=== PATIENT | male | born 1965 | race Asian ===

== ENCOUNTER 2016-12-14 16:22 | Emergency (ER) | payer MEDICAID, OTHER ==
[2016-12-14 17:55] LABS: Bilirubin,Urine NEG (Negative); Blood,Urine NEG (Negative); Ketones,Urine 20 mg/dL (Negative); Leukocyte Esterase,Urine NEG (Negative); Mucus,Urine 3+ /HPF; Nitrite,Urine NEG (Negative); Urobilinogen,Urine < 2.0 mg/dL (<2.0)
[2016-12-14 18:19] LABS: Basophils % (Auto) 0.9 % (0.0-1.8); Eosinophils % (Auto) 0.3 % (0.0-4.3); Hematocrit 42.4 % (35.5-45.6); Hemoglobin 14.9 gm/dl (11.8-15.2); Mean Corpuscular HGB Conc 35 % (32-34); Mean Corpuscular Hemoglobin 32 pg (28-32); Mean Corpuscular Volume 92 fl (84-94); Platelet Count 230 K/mm3 (140-440); Red Blood Count 4.62 M/mm3 (3.65-5.03); Red Cell Distribution Width 12.8 % (13.2-15.2); White Blood Count 6.5 K/mm3 (4.5-11.0)
[2016-12-14 18:35] LABS: Alanine Aminotransferase 34 units/L (7-56); Albumin 4.7 g/dL (3.9-5); Albumin/Globulin Ratio 1.5 %; Alkaline Phosphatase 112 units/L (35-129); Anion Gap 22 mmol/L; Bilirubin,Total 0.7 mg/dL (0.1-1.2); Blood Urea Nitrogen 18 mg/dL (9-20); Calcium 9.8 mg/dL (8.4-10.2); Carbon Dioxide 22 mmol/L (22-30); Glucose 119 mg/dL (75-100); Lipase 31 units/L (13-60); Potassium 4.1 mmol/L (3.6-5.0); Sodium 142 mmol/L (137-145); Total Protein 7.8 g/dL (6.3-8.2)
[2016-12-15] MEDS ORDERED: NACL 0.9% 1000 ML 1,000 ML IV ONE (01:04)
[2016-12-15] MEDS ORDERED: REGLAN IV ONE (01:04)
--- NOTE | 2016-12-15 01:57 | Emergency Department Report ---
ED General Adult HPI - General Chief complaint: Abdominal Pain Stated complaint: POSS DEHYDRATION/GASTRIC ISSUE Time Seen by Provider: 12/15/16 00:53 Source: patient Mode of arrival: Ambulatory Limitations: No Limitations - History of Present Illness Initial comments: 51-year-old male presents to the emergency department complaining of possible dehydration. Patient states yesterday morning he tried to eat some oatmeal, but states it "got stuck in my stomach". Patient states that he tried to sip some water in an effort to get it to move, but this was unsuccessful. After that, the patient stopped trying to take anything in. Patient did see his primary care physician earlier today. He was prescribed Reglan, but states that there were some insurance issues at the pharmacy. He states he came to the emergency department because he did not want his dehydration to get worse. No other complaints. -: Gradual, days(s) (1) Location: abdomen Radiation: non-radiation Severity scale (0 -10): 0 Consistency: constant Improves with: none Worsens with: none Associated Symptoms: denies other symptoms Treatments Prior to Arrival: none - Related Data Home Medications Medication Instructions Recorded Confirmed Last Taken Beclomethasone Dipropionate [Qvar 11/25/16 Unknown 80MCG] Cetirizine (Nf) 11/25/16 Unknown Lisinopril [Lisinopril] 11/25/16 11/24/16 Metoprolol Tartrate [Metoprolol 11/25/16 11/25/16 Tartrate] Tamsulosin HCl [Tamsulosin HCl] 11/25/16 11/25/16 clonazePAM [clonazePAM] 11/25/16 11/25/16 Previous Rx's Medication Instructions Recorded Last Taken Type Naproxen [Naprosyn] 500 mg PO BID #60 tablet 11/25/16 Unknown Rx methOCARBAMOL [Robaxin TAB] 500 mg PO BID #60 tab 11/25/16 Unknown Rx Allergies Allergy/AdvReac Type Severity Reaction Status Date / Time No Known Allergies Allergy Unverified 11/25/16 14:37 ED Review of Systems ROS: Stated complaint: POSS DEHYDRATION/GASTRIC ISSUE Other details as noted in HPI Comment: All other systems reviewed and negative Gastrointestinal: as per HPI. denies: nausea, vomiting ED Past Medical Hx - Past Medical History Previous Medical History?: Yes Hx Hypertension: Yes Hx Psychiatric Treatment: Yes (anxiety) Hx Asthma: Yes Additional medical history: high cholesterol, Allergies - Surgical History Past Surgical History?: Yes Additional Surgical History: Laminectomy - Family History Family history: no significant - Social History Smoking Status: Never Smoker Substance Use Type: Prescribed - Medications Home Medications: Home Medications Medication Instructions Recorded Confirmed Last Taken Type Beclomethasone Dipropionate [Qvar 11/25/16 Unknown History 80MCG] Cetirizine (Nf) 11/25/16 Unknown History Lisinopril [Lisinopril] 11/25/16 11/24/16 History Metoprolol Tartrate [Metoprolol 11/25/16 11/25/16 History Tartrate] Naproxen [Naprosyn] 500 mg PO BID #60 tablet 11/25/16 Unknown Rx Tamsulosin HCl [Tamsulosin HCl] 11/25/16 11/25/16 History clonazePAM [clonazePAM] 11/25/16 11/25/16 History methOCARBAMOL [Robaxin TAB] 500 mg PO BID #60 tab 11/25/16 Unknown Rx ED Physical Exam - General Limitations: No Limitations General appearance: alert, in no apparent distress, anxious - Head Head exam: Present: atraumatic, normocephalic - Eye Eye exam: Present: normal appearance, PERRL, EOMI - ENT ENT exam: Present: normal exam, normal orophraynx, mucous membranes moist - Neck Neck exam: Present: normal inspection, full ROM. Absent: tenderness - Respiratory Respiratory exam: Present: normal lung sounds bilaterally. Absent: respiratory distress - Cardiovascular Cardiovascular Exam: Present: regular rate, normal rhythm, normal heart sounds - GI/Abdominal GI/Abdominal exam: Present: soft, normal bowel sounds. Absent: distended, tenderness - Extremities Exam Extremities exam: Present: normal inspection, full ROM. Absent: tenderness - Back Exam Back exam: Present: normal inspection, full ROM. Absent: tenderness - Neurological Exam Neurological exam: Present: alert, oriented X3. Absent: motor sensory deficit - Skin Skin exam: Present: warm, dry, intact ED Course Vital Signs 12/14/16 12/14/16 12/15/16 16:51 21:38 00:58 Temperature 98.4 F 99.4 F Pulse Rate 113 H 95 H 96 H Respiratory 18 18 21 Rate Blood Pressure 149/105 157/106 Blood Pressure [Left] O2 Sat by Pulse 97 100 Oximetry 12/15/16 12/15/16 12/15/16 01:00 01:12 01:59 Temperature 98 F Pulse Rate 92 H 98 H Respiratory 17 18 18 Rate Blood Pressure 163/97 Blood Pressure 187/108 [Left] O2 Sat by Pulse 100 98 Oximetry ED Medical Decision Making - Lab Data Result diagrams: 12/14/16 18:04 12/14/16 18:04 - Medical Decision Making Laboratory results reviewed and discussed with the patient. Patient reports feeling better following IV fluids. Patient will be discharged home at this time to follow-up with his primary care physician. - Differential Diagnosis gastroparesis, dehydration, electrolyte abnormality Critical care attestation.: If time is entered above; I have spent that time in minutes in the direct care of this critically ill patient, excluding procedure time. ED Disposition Clinical Impression: Mild dehydration Disposition: DISCHARGED TO HOME OR SELFCARE Is pt being admited?: No Condition: Stable Instructions: Dehydration (ED) Referrals: PRIMARY CARE, [Primary Care Provider] - 3-5 Days Time of Disposition: 02:22
[2016-12-15 02:29] VITALS: BP 161/93
== END 2016-12-15 02:29 | disposition home or self-care (01) ==
LOC: ED 16:22
DX: E86.0 Dehydration (principal); I10 Essential (primary) hypertension; J45.909 Unspecified asthma, uncomplicated; E78.00 Pure hypercholesterolemia, unspecified
CPT/HCPCS: 36415; 80053; 81001; 83690; 85025; 96361; 96374; 99283; J2765; J7030

== ENCOUNTER 2018-12-27 10:02 | Outpatient (CLI) | payer MEDICAID ==
[2018-12-27 10:40] LABS: Blood Urea Nitrogen 11 mg/dL (9-20)
--- NOTE | 2018-12-27 16:28 | Cat Scan Report ---
PROCEDURE: CT ABDOMEN PELVIS W CON TECHNIQUE: CT examination of the abdomen after IV contrast CT examination of the pelvis after IV contrast No oral contrast. HISTORY: ABD PAIN COMPARISONS: None FINDINGS: Slight degenerative change in the regional skeleton. Slight lumbar curvature with lower left apex. No acute fracture. Small right and very small left pleural effusions layer posteriorly. Slight atelectasis right lung ba se. Smoothly marginated hypodense right and left hepatic lobe lesions are nonspecific and statistically m ost likely reflect cysts and/or hemangiomas. Findings favor hemangiomas given that some lesions demon strate peripheral early IV contrast enhancement. Normal-appearing gallbladder, left adrenal, pancreas, and spleen. Nonspecific 11 mm right adrenal nodule with average post contrast CT density of 61. This favors a isa ign lipid Rich adenoma. Intact normal caliber abdominal aorta with slight calcified and noncalcified atherosclerotic plaque. Normal caliber IVC. 1 mm and 2 mm nonobstructing right renal calculi. No left renal calculi. No hydronephrosis. Nonspecif ic, smoothly marginated, simple appearing, low density bilateral renal lesions are statistically most likely cysts. Otherwise normal-appearing kidneys and visible ureteral segments. Very small fat-containing umbilical hernia. Small bilateral fat-containing inguinal hernia. No retroperitoneal adenopathy. No evidence of mesenteric mass. No abnormal fluid collection in the ab domen and pelvis. Normal-appearing stomach and duodenum. No small bowel distention in the abdomen and pelvis. No pelvic free fluid. Normal-appearing urinary bladder, prostate, seminal vesicles, and rectum. No gr oss ascites, free air, or colonic distention. Normal-appearing cecum and terminal ileum. Normal retro cecal appendix. Prominent stool throughout the sigmoid colon and rectum may reflect distal constipation. IMPRESSION: Small right and very small left pleural effusions layer posteriorly Slight atelectasis right lung base Nonspecific multiple liver lesions favoring hemangiomas Relatively low IV contrast density of 11 mm right adrenal nodule favors lipid rich adenoma 1 and 2 mm nonobstructing right renal calculi Small fat-containing bilateral inguinal hernia Prominent stool throughout the sigmoid colon and rectum may reflect distal constipation This document is electronically signed by Bo Persaud MD., December 27 2018 04:26:20 PM ET
== END 2018-12-27 10:03 | disposition home or self-care (01) ==
LOC: CT 10:02
PROVIDERS: ATTEND Internal Medicine
DX: K40.20 Bilateral inguinal hernia, without obstruction or gangrene, not specified as recurrent (principal); J90 Pleural effusion, not elsewhere classified; J98.11 Atelectasis; I10 Essential (primary) hypertension; E78.5 Hyperlipidemia, unspecified; K21.9 Gastro-esophageal reflux disease without esophagitis; J45.909 Unspecified asthma, uncomplicated
CPT/HCPCS: 36415; 74177; 82565; 84520; Q9967

== ENCOUNTER 2019-11-04 09:14 | Outpatient (CLI) | payer MEDICAID | END 2019-11-04 09:15 | disposition home or self-care (01) | LOC: LAB 09:14 | PROVIDERS: ATTEND Surgery | DX: N62 Hypertrophy of breast (principal) | CPT/HCPCS: 36415; 82670; 84436; 84443; 84479; 84702 ==

== ENCOUNTER 2019-11-13 10:30 | Outpatient (CLI) | payer MEDICAID | END 2019-11-13 10:31 | disposition home or self-care (01) | LOC: LAB 10:30 | PROVIDERS: ATTEND Surgery | DX: N62 Hypertrophy of breast (principal) | CPT/HCPCS: 36415; 84146 ==